=== PATIENT | female | born 1990 ===

== ENCOUNTER 2016-08-21 18:37 | Emergency (ER) | payer SELFPAY ==
[2016-08-21 18:50] VITALS: TEMP 98.9; O2SAT 100
--- NOTE | 2016-08-21 19:10 | ED PDOC ---
HPI: General Adult Time Seen by Provider: 08/21/16 18:41 Chief Complaint (Nursing): Lower Extremity Problem/Injury History Per: Patient Additional Complaint(s): Pt. states she was on a swing earlier today when her R leg became caught on the ground causing her to injure her R ankle and foot. Denies numbness, tingling, other injury, knee pain, leg pain. Past Medical History Reviewed: Historical Data, Nursing Documentation, Vital Signs Vital Signs: Last Vital Signs Temp 98.9 F 08/21/16 18:48 Pulse 100 H 08/21/16 19:04 Resp 20 08/21/16 18:48 BP 111/70 08/21/16 19:04 Pulse Ox 100 08/21/16 19:12 - Family History Family History: States: No Known Family Hx - Allergies Allergies/Adverse Reactions: Allergies Allergy/AdvReac Type Severity Reaction Status Date / Time No Known Allergies Allergy Verified 08/21/16 18:48 Review of Systems ROS Statement: Except As Marked, All Systems Reviewed And Found Negative Musculoskeletal: Positive for: Leg Pain, Foot Pain Physical Exam - Physical Exam Appears: Positive for: Well, Non-toxic, In Acute Distress (moderate painful distress) Skin: Positive for: Normal Color, Warm. Negative for: Rash Extremity: Positive for: Capillary Refill (< 2 seconds of RLE), Other (moderate tenderness to R ankle on both malleoli and on dorsum of foot without deformity; no hip, leg, or knee tenderness). Negative for: Pedal Edema, Calf Tenderness Neurologic/Psych: Positive for: Alert, Oriented - ECG O2 Sat by Pulse Oximetry: 100 - Progress ED Course And Treament: Morphine 4mg IV, zofran 4mg IV ordered. Leg, ankle, foot x-ray ordered. Disposition - Clinical Impression Clinical Impression: Ankle injury - Patient ED Disposition Is Patient to be Admitted: Transfer of Care (Signed out to Carlyn [place] pending xray results.) - Disposition Disposition Time: 20:00 Condition: STABLE
--- NOTE | 2016-08-21 20:59 | CP.PCM.CON ---
History of Present Illness - History of Present Illness History of Present Illness: PODIATRY CONSULT NOTE 25 year old obese female presents for pain, swelling, and mal-alaignment of right ankle. Pt states that at 6 pm [place], she "broke" her ankle while trying to brake on the swing set. Immediately could not bear weight and was brought to [facility] ER via EMS. Pt describes pain as a sharp throbbing localized to her right ankle graded "8/10". Pt reports that her pain is moderately controlled with the administers pain medications. Pt reports she has been NPO since 3pm. Pt denies recent f/c/cp/sob/n/v. PMD: None PMH: Denies. PSH: None All: NKDA Meds: Control Social Hx: Homed, newly employed. Mother to 1 . Denies alcohol consumption. Recent tobacco use histroy- Cigarette use 1/10th a pack a day for 3 weeks, quit [address] drug use. ROS: Negative outside of HPI. Past Patient History - Past Social History Smoking Status: Never Smoked - PSYCHIATRIC Hx Substance Use: No - SURGICAL HISTORY Hx Surgeries: Yes Meds Allergies/Adverse Reactions: Allergies Allergy/AdvReac Type Severity Reaction Status Date / Time No Known Allergies Allergy Verified 08/21/16 18:48 Physical Exam - Constitutional Appears: Well, Non-toxic, No Acute Distress - Extremities Exam Additional comments: Right leg focused. VASC: DP and PT pulses non palpable, auscultated via doppler strongly biphasic flow to both. Negative calf tenderness on compression. Moderate non-pitting edema noted at level of ankle joint. Temperature runs warm to cool proximal to distal. DERM: No noted ecchymosis at this time. No vesicles at this time. No open wounds , lesion, or macerations noted. No hyper-keratotic lesion. NEURO: Protective sensation and epicritic sensation grossly intact. Absent paresthesia or Tinel's signs along pedal dermatomes. MUSK: Gross posterior displacement and angulation of ankle joint. Absent ankle ROM of ankle joint in saggital plane, limitation severe secondary to guarding, swelling, and gross mal-alignment. Tenderness on palpation along medial malleoli , lateral malleoli, and anterior ankle joint. Negative tenderness along proximal fibula. Pain on proximal midcalf induced ankle joint diastasis attempts. ROM present at level of digits. - Neurological Exam Neurological exam: Alert, Oriented x3 - Psychiatric Exam Psychiatric exam: Normal Affect, Normal Mood Results - Vital Signs Recent Vital Signs: Last Vital Signs Temp 98.9 F 08/21/16 18:48 Pulse 100 H 08/21/16 19:04 Resp 20 08/21/16 18:48 BP 111/70 08/21/16 19:04 Pulse Ox 100 08/21/16 20:08 - Labs Labs: Laboratory Results - last 24 hr 08/21/16 18:58 Serum HCG, Qual Negative Assessment & Plan - Assessment and Plan (Free Text) Assessment: 25 year old w/ closed, dislocated right ankle tri-malleolar fracture with syndesmotic rupture, secondary to acute trauma. Plan: Pt seen and evaluated. Chart, labs, and vitals reviewed. Discussed in detail with attending, Dr. Garcia, who endorsed the following plan. Radiographs reviewed. Shows Posteriorly dislocated tri-malleolar right ankle fracture with syndesmotic rupture. Discussed diagnosis and plan with patient. Pt aware and understands that surgical intervention will be needed in the near future. Alternatives, risks, and benefits of other management option, discussed. Pt consented to closed reduction of right ankle under conscious sedation. Sedation administered by Dr. Lynn. Pt tolerated procedure well. Gross alignment and length restored. Correction maintained with bi-valved fiberglass cast. Pt to follow-up in [facility] podiatry clinic within 1 week for surgical scheduling. - Date & Time Date: 08/21/16 Time: 22:26
[2016-08-21] MEDS ORDERED: Propofol 10 mg/ml Inj (20 ML) IV ONE (22:03)
[2016-08-21] MEDS ORDERED: Sodium Chloride 0.9% 1,000 ML IV STA (22:25)
[2016-08-21 22:51] VITALS: BP 120/69
[2016-08-21 22:53] VITALS: PULSE 74; RESP 18
--- NOTE | 2016-08-21 23:58 | ED PDOC ---
- ECG O2 Sat by Pulse Oximetry: 100 <Rai Alcocer - Last Filed: 08/21/16 23:56> - ECG O2 Sat by Pulse Oximetry: 100 (RA) Pulse Ox Interpretation: Normal <Iron Lynn - Last Filed: 08/22/16 00:50> Disposition - POA Present On Arrival: None - Disposition Disposition: Routine/Home Disposition Time: 23:58 <AlcocerRai Dilshad - Last Filed: 08/21/16 23:56> <Iron Lynn - Last Filed: 08/22/16 00:50> - Clinical Impression Clinical Impression: Fracture of tibia and fibula - Disposition Referrals: Podiatry Clinic [Outside] Condition: GOOD Prescriptions: Naproxen 500 mg PO BID #20 tab Instructions: Ankle Fracture (ED) Forms: [facility] ED School/Work Excuse Critical Care Time <Rai Alcocer - Last Filed: 08/21/16 23:56> - Critical Care Note Total Time (in mins): 30 Documented critical care: time excludes all time spent performing seperately billable procedures. <Iron Lynn - Last Filed: 08/22/16 00:50> - Critical Care Note Comments: --Patient was in 30 minutes of critical care time during sedation procedure. ( Iron Lynn) ED Procedural Sedation <Rai Alcocer Dilshad - Last Filed: 08/21/16 23:56> - Pre Anesthesia Assessment Past Medical History: Medications Reviewed, Allergies Reviewed, Record Review Previous Surgies: Reviewed Family History/Social History: Reviewed - Physical Exam/Review of Systems Vital Signs Reviewed: Yes Cardiovascular: Regular Rate and Rhythm, Normal S1, S2. denies: Murmurs Respiratory/Chest: Clear to Auscultation, Good Air Exchange. denies: Respiratory Distress Neurological: GCS=15, CN II-XII Intact, Speech Normal Abdomen: Normal Bowel Sounds. denies: Tenderness, Distention, Peritoneal Signs Mental Status: Alert and Oriented X 3 - Pre-Procedure Airway Assessment History of difficult intubation or surgical airway(i.e trach: No Inability to extend neck:: No Mouth opening less than two finger breadth:: No Diagnosis of sleep apnea:: No Less than three finger breadth to hyoid bone:: No ASA Criteria: 1 - Healthy, normal. 2 - Mild systemic disease (No functional limitations, mildline obesity, DM withot complications, Hypertention). 3 - Severe systemic disease (Some functional limitation, stable angina, morbid obesity, controlled COPD/Asthma/CHF). 4 - Sever systemic disease constant threat to life (Unstable angina, active symptoms of COPD/Asthma, CHF/ Hypertension. 5 - Moribund ASA Clarification: ASA I Mallampati (airway): Class I <Iron Lynn - Last Filed: 08/22/16 00:50> - Pre Anesthesia Assessment Chief Complaint: Lower Extremity Problem/Injury - Intra-Procedure (Medications) Medications Given: Discontinued Medications Acetaminophen (Tylenol 325mg Tab) Confirm Administered Dose 975 mg .ROUTE .STK- MED ONE Stop: 08/21/16 18:46 Acetaminophen (Tylenol 325mg Tab) 975 mg PO STAT STA Stop: 08/21/16 18:52 Last Admin: 08/21/16 18:59 Dose: 975 mg Re-Assess: [facility] Pain/Vitals Document 08/21/16 19:59 NM (Rec: 08/21/16 22:02 NM [email or web address]) Pain Reassessment Is This A Pain ReAssessment? Yes Sleep Is patient sleeping during reassessment? No Presence of Pain Presence of Pain Yes Pain Scale Used Pain Scale Used Numeric Location Left, Right or Bilateral Right Pain Location Body Site Ankle Description Constant Intensity 7 Scale Used Numeric Pain Behavior Irritability Aggravating Factors Changing Position Aggravating Factors Changing Position Hydromorphone HCl (Dilaudid) 1 mg IVP STAT STA Stop: 08/21/16 22:05 Last Admin: 08/21/16 22:13 Dose: 1 mg Re-Assess: [facility] Pain Assessment Document 08/21/16 23:13 NM (Rec: 08/22/16 00:09 NM [email or web address]) Pain Reassessment Is this a pain reassessment? Yes Sleep Is patient sleeping during reassessment? No Presence of Pain Presence of Pain Yes Pain Scale Used Pain Scale Used Numeric Location Left, Right or Bilateral Right Pain Location Body Site Ankle Description Description Constant Intensity of Pain at present 4 Pain Behavior Irritability Aggravating Factors Changing Position Alleviating Factors/Management Medication Techniques Alleviating Factors Medication Sodium Chloride (Sodium Chloride 0.9%) 1,000 mls @ 1,000 mls/hr IV .Q1H STA Stop: 08/21/16 23:24 Last Admin: 08/21/16 22:41 Dose: 1,000 mls/hr Morphine Sulfate (Morphine) 4 mg IVP STAT STA Stop: 08/21/16 18:51 Last Admin: 08/21/16 19:35 Dose: 4 mg Re-Assess: [facility] Pain Assessment Document 08/21/16 20:35 NM (Rec: 08/21/16 22:01 NM [email or web address]) Pain Reassessment Is this a pain reassessment? Yes Sleep Is patient sleeping during reassessment? No Presence of Pain Presence of Pain Yes Pain Scale Used Pain Scale Used Numeric Location Left, Right or Bilateral Right Pain Location Body Site Ankle Description Description Constant Intensity of Pain at present 8 Pain Behavior Irritability Aggravating Factors Changing Position Alleviating Factors/Management Medication Techniques Alleviating Factors Medication Morphine Sulfate (Morphine) Confirm Administered Dose 4 mg .ROUTE .STK-MED ONE Stop: 08/21/16 19:23 Ondansetron HCl (Zofran Inj) 4 mg IVP STAT STA Stop: 08/21/16 18:51 Last Admin: 08/21/16 19:35 Dose: 4 mg Ondansetron HCl (Zofran Inj) Confirm Administered Dose 4 mg .ROUTE .STK-MED ONE Stop: 08/21/16 19:23 Oxycodone/Acetaminophen (Percocet 5/325 Mg Tab) 1 tab PO STAT STA Stop: 08/22/16 00:29 Last Admin: 08/22/16 00:42 Dose: 1 tab Oxycodone/Acetaminophen (Percocet 5/325 Mg Tab) Confirm Administered Dose 1 tab .ROUTE .STK-MED ONE Stop: 08/22/16 00:30 Propofol (Diprivan) 100 mg IV ONCE ONE Stop: 08/21/16 22:04 Last Admin: 08/21/16 22:41 Dose: 100 mg Propofol (Diprivan) 50 mg IV ONCE ONE Stop: 08/22/16 00:25 Last Admin: 08/21/16 22:03 Dose: 50 mg Propofol (Diprivan) Confirm Administered Dose 200 mg .ROUTE .STK-MED ONE Stop: 08/22/16 00:30 - Post-Procedure Post Procedure Note: Time: 00:25 --Conscious sedation procedure of a closed fracture reduction of the right ankle. --Reduction was preformed by podiatry on bedside. --Informed consent obtained from patient. --Administered Dilaudid 1mg IVP and 150 mg of Propofol IV. --Patient tolerated procedure well. --30 minutes critical care. Scribe Attestation: Documented by Jenna Sierra, acting as a scribe for Iron Lynn MD. Provider Scribe Attestation: All medical record entries made by the Scribe were at my direction and personally dictated by me. I have reviewed the chart and agree that the record accurately reflects my personal performance of the history, physical exam, medical decision making, and the department course for this patient. I have also personally directed, reviewed, and agree with the discharge instructions and disposition. (Shane,Iron Padron)
[2016-08-22] MEDS ORDERED: Propofol 10 mg/ml Inj (20 ML) IV ONE (00:24)
[2016-08-22] MEDS ORDERED: Oxycodone/Acetaminophen 5/325 mg Tab PO STA (00:28)
[2016-08-22] MEDS ORDERED: Oxycodone/Acetaminophen 5/325 mg Tab ONE (00:29)
[2016-08-22] MEDS ORDERED: Propofol 10 mg/ml Inj (20 ML) ONE (00:29)
--- NOTE | 2016-08-22 00:36 | ED PDOC ---
- ECG O2 Sat by Pulse Oximetry: 100 (RA) Pulse Ox Interpretation: Normal Medical Decision Making Medical Decision Making: Time: 00:25 Conscious Sedation Procedure --Consent obtained from patient. --Administered Scribe Attestation: Documented by Jenna Sierra, acting as a scribe for Iorn Lynn MD. Provider Scribe Attestation: All medical record entries made by the Scribe were at my direction and personally dictated by me. I have reviewed the chart and agree that the record accurately reflects my personal performance of the history, physical exam, medical decision making, and the department course for this patient. I have also personally directed, reviewed, and agree with the discharge instructions and disposition. Disposition Counseled Patient/Family Regarding: Studies Performed, Diagnosis, Need For Followup - Clinical Impression Clinical Impression: Fracture of tibia and fibula - POA Present On Arrival: None - Disposition Referrals: Podiatry Clinic [Outside] Disposition: Routine/Home Disposition Time: 00:00 Condition: IMPROVED Prescriptions: Naproxen 500 mg PO BID #20 tab Instructions: Ankle Fracture (ED) Forms: [facility] ED School/Work Excuse
--- NOTE | 2016-08-22 12:17 | RAD ---
PROCEDURE: Radiographs of the right tibia and fibula. HISTORY: trauma COMPARISON: Comparison made with concurrent radiographs of the right ankle TECHNIQUE: Frontal and lateral views obtained. FINDINGS: BONES: The previously noted comminuted intra-articular displaced fracture dislocation of the left tibia and fibula less well seen on this study due to on single AP patient positioning. Diffuse bilateral soft tissue swelling medial greater than lateral. JOINT SPACES: Unremarkable. OTHER FINDINGS: None. IMPRESSION: Comminutedintra-articular displaced fracture dislocation of the left tibia and fibula less well seen on this study due to on single AP patient positioning as compared to multiple on concurrent ankle radiographs. . Diffuse bilateral soft tissue swelling medial greater than lateral.
--- NOTE | 2016-08-22 16:59 | RAD ---
Right ankle dated 08/21/2016. History: Status post reduction. Three views of the right ankle performed (1st two radiographs without fiberglass cast and the 3rd obtained with overlying fiberglass cast). . Comparison made with earlier film same day. Previously noted comminuted intraarticular displaced fractures of the distal tibia and fibula again noted with better approximation of the fracture fragments and ankle mortise. Moderate surrounding diffuse bilateral soft tissue swelling. Impression: Status post closed reduction previously noted comminuted intra-articular displaced fractures of the distal tibia and fibula. There is better approximation of the fracture fragments and ankle mortise
--- NOTE | 2016-08-22 17:01 | RAD ---
PROCEDURE: Right ankle radiographs 08/21/2016 Three standard views of the right ankle performed HISTORY: trauma COMPARISON: None FINDINGS: BONES: Current study reveals displaced comminuted intra-articular fractures of the distal tibia and fibula. There is disruption of the ankle mortise and anterior dislocation of the tibia with respect to the talus. Surrounding soft tissue swelling. JOINTS: Normal. No osteoarthritis. Ankle mortise maintained. Talar dome intact SOFT TISSUES: Normal. OTHER FINDINGS: None. IMPRESSION: Comminuted displaced intra-articular fractures of the distal tibia and fibula. There is disruption of the ankle mortise and anterior dislocation of the tibia with respect to the talus. Surrounding soft tissue swelling.
== END 2016-08-22 00:52 | disposition home or self-care (01) ==
LOC: H.ER 18:37
DX: S99.911A Unspecified injury of right ankle, initial encounter (principal); I10 Essential (primary) hypertension; E66.9 Obesity, unspecified; Z72.0 Tobacco use; S82.201A Unspecified fracture of shaft of right tibia, initial encounter for closed fracture; W09.1XXA Fall from playground swing, initial encounter; Y93.9 Activity, unspecified
CPT/HCPCS: 27840; 73590; 73600; 73610; 84703; 96361; 96374; 96375; 96376; 99285; J1170; J2270; J2405; J2704; J7040

== ENCOUNTER 2017-08-18 12:07 | Emergency (ER) | payer MEDICAID ==
[2017-08-18 12:11] VITALS: BMI 42.0
--- NOTE | 2017-08-18 12:57 | ED PDOC ---
HPI: General Adult Time Seen by Provider: 08/18/17 12:31 Chief Complaint (Nursing): GI Problem History Per: Patient Additional Complaint(s): Pt. requesting test as she's had nausea (spitting up but no vomiting) and states she feels that her breasts feel engorged. Pt. is concerned about being . Denies pelvic pain, vaginal bleeding, dysuria, hematuria, abdominal pain, constipation. LMP: "end of last month" Past Medical History Reviewed: Historical Data, Nursing Documentation, Vital Signs Vital Signs: Last Vital Signs Temp 98 F 08/18/17 12:11 Pulse 84 08/18/17 12:11 Resp 16 08/18/17 12:11 BP 113/77 08/18/17 12:11 Pulse Ox 97 08/18/17 12:58 - Medical History PMH: Fractures (present) Denies: HIV, Chronic Kidney Disease - Family History Family History: States: Unknown Family Hx - Immunization History Hx Tetanus Toxoid Vaccination: Yes - Home Medications Home Medications: Ambulatory Orders Medication Instructions Recorded Naproxen 500 mg PO BID #20 tab 08/21/16 Naproxen [Naprosyn] 500 mg PO BID PRN 08/27/16 - Allergies Allergies/Adverse Reactions: Allergies Allergy/AdvReac Type Severity Reaction Status Date / Time No Known Allergies Allergy Verified 08/21/16 18:48 Review of Systems ROS Statement: Except As Marked, All Systems Reviewed And Found Negative Gastrointestinal: Positive for: Nausea Physical Exam - Physical Exam Appears: Positive for: Well, Non-toxic, No Acute Distress Skin: Positive for: Normal Color, Warm. Negative for: Rash Cardiovascular/Chest: Positive for: Regular Rate, Rhythm Respiratory: Positive for: Normal Breath Sounds - Laboratory Results Urine POC: Negative - ECG O2 Sat by Pulse Oximetry: 97 Disposition - Clinical Impression Clinical Impression: test negative - Patient ED Disposition Is Patient to be Admitted: No - Disposition Referrals: [email or web address] [Outside] [facility] [Outside] Disposition: Routine/Home Disposition Time: 13:05 Condition: STABLE Additional Instructions: Follow up with [facility] for further evaluation Return to ED immediately if symptoms worsen Instructions: Tests, Symptoms Forms: [employer] (Kyrgyz) Print Language: POLISH
[2017-08-18 13:29] VITALS: BP 124/70; PULSE 76; RESP 17; TEMP 97.8; O2SAT 100
== END 2017-08-18 13:28 | disposition home or self-care (01) ==
LOC: H.ER 12:07
DX: Z32.02 Encounter for pregnancy test, result negative (principal)

== ENCOUNTER 2017-11-05 12:56 | Emergency (ER) | payer MEDICAID ==
[2017-11-05 13:25] VITALS: O2SAT 100
[2017-11-05 13:26] VITALS: BMI 40.8
[2017-11-05 13:30] VITALS: RESP 18
[2017-11-05 14:04] LABS: SQUAMOUS EPITHIAL 2 /hpf (0-5); URINE BILIRUBIN NEGATIVE (NEGATIVE); URINE BLOOD NEGATIVE (NEGATIVE); URINE CLARITY CLEAR (Clear); URINE COLOR YELLOW (YELLOW); URINE GLUCOSE (UA) NEG (Normal); URINE LEUKOCYTE ESTERASE NEG Leu/uL (Negative); URINE PROTEIN NEGATIVE (NEGATIVE); URINE UROBILINOGEN 0.2-1.0 mg/dL (0.2-1.0)
[2017-11-05 14:16] LABS: BASO % 0.6 % (0.0-2.0); EOS # 0.1 K/uL (0.0-0.7); EOS % 1.4 % (0.0-4.0); HEMOGLOBIN 12.4 g/dL (12.0-16.0); LYMPH # 2.5 K/uL (1.0-4.3); LYMPH % 40.6 % (20.0-40.0); MEAN CELL VOLUME 84.5 fl (81.0-99.0); MEAN CORPUSCULAR HEMOGLOBIN 27.9 pg (27.0-31.0); MEAN CORPUSCULAR HGB CONC 33.1 g/dL (33.0-37.0); MEAN PLATELET VOLUME 8.1 fl (7.2-11.7); MONO # 0.4 K/uL (0.0-0.8); MONO % 6.9 % (0.0-10.0); NEUT # 3.1 K/uL (1.8-7.0); NEUT % 50.5 % (50.0-75.0); NRBC % 0.2 % (0.0-0.0); RBC 4.45 Mil/uL (3.80-5.20); RED CELL DISTRIBUTION WIDTH 15.4 % (11.5-14.5); WHITE BLOOD COUNT 6.2 K/uL (4.8-10.8)
[2017-11-05 14:30] LABS: ALB/GLOB RATIO 1.2 (1.0-2.1); ALBUMIN 3.9 g/dL (3.5-5.0); ALT/SGPT 26 U/L (9-52); AST/SGOT 23 U/L (14-36); BLOOD UREA NITROGEN 10 mg/dl (7-17); CALCIUM 8.8 mg/dL (8.4-10.2); GFR AFRICAN-AMERICAN > 60; GFR NON-AFRICAN AMERICAN > 60; LIPASE 29 U/L (23-300)
--- NOTE | 2017-11-05 14:34 | ED PDOC ---
HPI: Abdomen Time Seen by Provider: 11/05/17 13:38 Chief Complaint (Nursing): Abdominal Pain Chief Complaint (Provider): abd pain History Per: Patient (23 y/o female here with lower abd crampy pain associated with nausea and 1 episode vomiting. denies any diarrhea/fevers/chills.) Past Medical History Reviewed: Historical Data, Nursing Documentation, Vital Signs Vital Signs: Last Vital Signs Temp 98.2 F 11/05/17 15:16 Pulse 67 11/05/17 15:16 Resp 18 11/05/17 15:16 BP 109/68 11/05/17 15:16 Pulse Ox 100 11/05/17 15:16 - Medical History PMH: Fractures (present) Denies: HIV, Chronic Kidney Disease - Family History Family History: States: Unknown Family Hx - Immunization History Hx Tetanus Toxoid Vaccination: Yes - Home Medications Home Medications: Ambulatory Orders Medication Instructions Recorded Naproxen 500 mg PO BID #20 tab 08/21/16 Naproxen [Naprosyn] 500 mg PO BID PRN 08/27/16 Famotidine [Pepcid] 20 mg PO BID #10 tab 11/05/17 Ondansetron ODT [Zofran ODT] 4 mg PO Q8 PRN #3 odt 11/05/17 - Allergies Allergies/Adverse Reactions: Allergies Allergy/AdvReac Type Severity Reaction Status Date / Time No Known Allergies Allergy Verified 08/21/16 18:48 Review of Systems ROS Statement: Except As Marked, All Systems Reviewed And Found Negative Physical Exam - Reviewed Nursing Documentation Reviewed: Yes Vital Signs Reviewed: Yes - Physical Exam Appears: Positive for: Well, Non-toxic, No Acute Distress Head Exam: Positive for: ATRAUMATIC, NORMAL INSPECTION, NORMOCEPHALIC Skin: Positive for: Normal Color, Warm, DRY Eye Exam: Positive for: EOMI, Normal appearance, PERRL ENT: Positive for: Normal ENT Inspection Neck: Positive for: Normal, Painless ROM Cardiovascular/Chest: Positive for: Regular Rate, Rhythm Respiratory: Positive for: CNT, Normal Breath Sounds Gastrointestinal/Abdominal: Positive for: Normal Exam, Soft Back: Positive for: Normal Inspection Extremity: Positive for: Normal ROM Neurologic/Psych: Positive for: Alert, Oriented - Laboratory Results Result Diagrams: 11/05/17 14:11 11/05/17 14:11 Urine POC: Negative Urine dip results: Negative for: Leukocyte Esterase, Blood, Nitrate, Ketones, Glucose, Bilirubin - ECG O2 Sat by Pulse Oximetry: 100 - Progress ED Course And Treament: pepcid 20 mg iv x 1 dose zofran 4 mg iv x 1 dose with improvement of symptoms Disposition - Clinical Impression Clinical Impression: Abdominal cramps - Patient ED Disposition Is Patient to be Admitted: No - Disposition Disposition: Routine/Home Disposition Time: 15:13 Condition: FAIR Prescriptions: Famotidine [Pepcid] 20 mg PO BID #10 tab Ondansetron ODT [Zofran ODT] 4 mg PO Q8 PRN #3 odt PRN Reason: Nausea/Vomiting Instructions: Nausea and Vomiting, Adult (DC) Forms: [employer] (Kazakh)
[2017-11-05 15:17] VITALS: BP 109/68; PULSE 67; TEMP 98.2
== END 2017-11-05 15:13 | disposition home or self-care (01) ==
LOC: H.ER 12:56
DX: R10.9 Unspecified abdominal pain (principal)
CPT/HCPCS: 80053; 81003; 81025; 83690; 85025; 87086; 87491; 87591; 96374; 96375; 99285; J2405

== ENCOUNTER 2017-11-28 09:26 | Emergency (ER) | payer MEDICAID ==
[2017-11-28 09:27] VITALS: BMI 40.8
--- NOTE | 2017-11-28 10:11 | ED PDOC ---
HPI: Female Pain Time Seen by Provider: 11/28/17 09:54 Chief Complaint (Nursing): Female Genitourinary Chief Complaint (Provider): vaginal dc History Per: Patient History/Exam Limitations: no limitations Onset/Duration Of Symptoms: Days (11/05/17) Additional Complaint(s): Pt. here to get checked if she still has chlamydia. Has no abd pain, weakness, headaches, dizziness, back pain. Has vaginal yellow dc. No nausea, vomit diarrhea. Rx zithromax on 11/10 and pt. states she took it. Has dc from vaginal area with burning mild since then. Past Medical History Reviewed: Nursing Documentation, Vital Signs Vital Signs: Last Vital Signs Temp 98.4 F 11/28/17 09:32 Pulse 84 11/28/17 09:32 Resp 17 11/28/17 09:32 BP 105/68 11/28/17 09:32 Pulse Ox 99 11/28/17 09:32 - Medical History PMH: Fractures (present) Denies: HIV, Chronic Kidney Disease - Family History Family History: States: Unknown Family Hx - Immunization History Hx Tetanus Toxoid Vaccination: Yes - Home Medications Home Medications: Ambulatory Orders Medication Instructions Recorded Naproxen 500 mg PO BID #20 tab 08/21/16 Naproxen [Naprosyn] 500 mg PO BID PRN 08/27/16 Famotidine [Pepcid] 20 mg PO BID #10 tab 11/05/17 Ondansetron ODT [Zofran ODT] 4 mg PO Q8 PRN #3 odt 11/05/17 Azithromycin [Zithromax] 1,000 mg PO ONCE #2 tablet 11/10/17 Doxycycline Hyclate [Doryx] 100 mg PO BID 7 Days cap 11/28/17 - Allergies Allergies/Adverse Reactions: Allergies Allergy/AdvReac Type Severity Reaction Status Date / Time No Known Allergies Allergy Verified 08/21/16 18:48 Review of Systems Constitutional: Negative for: Weakness Cardiovascular: Negative for: Chest Pain Respiratory: Negative for: Shortness of Breath Gastrointestinal: Negative for: Nausea, Vomiting, Abdominal Pain Genitourinary Female: Positive for: Vaginal Discharge. Negative for: Dysuria, Frequency, Hematuria, Pelvic Pain Musculoskeletal: Negative for: Neck Pain Neurological: Negative for: Weakness Physical Exam - Reviewed Nursing Documentation Reviewed: Yes Vital Signs Reviewed: Yes - Physical Exam Neck: Positive for: Normal, Painless ROM Cardiovascular/Chest: Positive for: Regular Rate, Rhythm Respiratory: Positive for: CNT, Normal Breath Sounds Gastrointestinal/Abdominal: Positive for: Normal Exam, Soft. Negative for: Tenderness Pelvic Exam: Positive for: External Exam Normal, No Cerv. Motion Tender, Other ( trace discoloration of cervix; no dc). Negative for: Lesions Back: Positive for: Normal Inspection. Negative for: L CVA Tenderness, R CVA Tenderness Extremity: Positive for: Normal ROM. Negative for: Tenderness, Pedal Edema - ECG O2 Sat by Pulse Oximetry: 99 Pulse Ox Interpretation: Normal - Progress ED Course And Treament: 1026: Pt. took azithromycin and still has dc. Will rx with doxy. Stable. AAOx3. Disposition - Clinical Impression Clinical Impression: Chlamydia - Patient ED Disposition Is Patient to be Admitted: No - Disposition [facility] - 11/30/17 Disposition: Routine/Home Disposition Time: 10:28 Condition: FAIR Additional Instructions: Return if not better after antibiotics finished. Prescriptions: Doxycycline Hyclate [Doryx] 100 mg PO BID 7 Days cap Instructions: Chlamydia (DC)
[2017-11-28 11:05] VITALS: BP 126/76; PULSE 78; RESP 19; TEMP 97.4; O2SAT 98
== END 2017-11-28 11:06 | disposition home or self-care (01) ==
LOC: H.ER 09:26
DX: A74.9 Chlamydial infection, unspecified (principal)

== ENCOUNTER 2017-12-31 12:25 | Emergency (ER) | payer MEDICAID ==
[2017-12-31 12:26] VITALS: BMI 40.8
[2017-12-31 12:37] VITALS: BP 127/75; PULSE 78; RESP 16; TEMP 97
[2017-12-31 13:45] VITALS: O2SAT 98
--- NOTE | 2017-12-31 13:45 | ED PDOC ---
HPI: Abdomen Additional Complaint(s): 23 y/o F presents c/o of bilateral breast tenderness, mild pelvic pain and mild SOB since a few days ago. Pt suspecting being , is sexually active with NO use of contraception. LMP 12/02/17. Menses are regular with normal bleeding. Pt had Chlamydia 3 months ago, partner and herself were treated with PO antibiotics. Pt denies fever, chills, galactorrhea, chest pain, wheezing, nausea, vomiting, abdominal pain, urinary problems or vaginal discharge. PMD: None NKA Meds: None PMHx: denied PSHx: R ankle surgery for fracture repair. FHx: NC SHx: denies alcohol, tobacco or rec drugs. <Aureloi Monson - Last Filed: 12/31/17 13:36> <Kusum Payne - Last Filed: 12/31/17 15:51> Time Seen by Provider: 12/31/17 12:57 Chief Complaint (Nursing): Shortness Of Breath Supervising Attending Note - Supervising Attending Note The Documented history was done by the: Physician Battery Hand The documented physical exam was done by the: Physician Battery Hand The documented procedures were done by the: Physician Battery Hand - Attestation: I have personally seen and examined this patient.: Yes I have fully participated in the care of the patient.: Yes - Notes: Notes:: Pt presented with breast tenderness and missed period. UA shows no signs of infection and patient with positive preg. Discussed early with patient including no alcohol, tobacco, or drugs. Pt given rx for vitamins and [facility]. <Kusum Payne - Last Filed: 12/31/17 15:51> Past Medical History Vital Signs: Last Vital Signs Temp 97.0 F L 12/31/17 12:34 Pulse 78 12/31/17 12:34 Resp 16 12/31/17 12:34 BP 127/75 12/31/17 12:34 Pulse Ox 98 12/31/17 12:34 - Medical History PMH: Fractures (present) Denies: HIV, Chronic Kidney Disease - Family History Family History: States: Unknown Family Hx - Living Arrangements Living Arrangements: With Family - Social History Current smoker - smoking cessation education provided: No Ex-Smoker (has not smoked in the last 12 months): No Drugs: Denies - Immunization History Hx Tetanus Toxoid Vaccination: Yes <Aurelio Monson - Last Filed: 12/31/17 13:36> Vital Signs: Last Vital Signs Temp 97.0 F L 12/31/17 12:34 Pulse 78 12/31/17 12:34 Resp 16 12/31/17 12:34 BP 127/75 12/31/17 12:34 Pulse Ox 98 12/31/17 13:52 <Kusum Pyane - Last Filed: 12/31/17 15:51> - Home Medications Home Medications: Ambulatory Orders Medication Instructions Recorded RX: Naproxen 500 mg PO BID #20 tab 08/21/16 RX: Naproxen [Naprosyn] 500 mg PO BID PRN 08/27/16 Famotidine [Pepcid] 20 mg PO BID #10 tab 11/05/17 Ondansetron ODT [Zofran ODT] 4 mg PO Q8 PRN #3 odt 11/05/17 RX: Azithromycin [Zithromax] 1,000 mg PO ONCE #2 tablet 11/10/17 RX: Doxycycline Hyclate [Doryx] 100 mg PO BID 7 Days cap 11/28/17 - Allergies Allergies/Adverse Reactions: Allergies Allergy/AdvReac Type Severity Reaction Status Date / Time No Known Allergies Allergy Verified 12/31/17 12:34 Review of Systems Constitutional: Negative for: Fever, Chills, Sweats Eyes: Negative for: Pain ENT: Negative for: Ear Pain, Throat Pain Cardiovascular: Negative for: Chest Pain, Palpitations Respiratory: Negative for: Cough, Shortness of Breath Gastrointestinal: Negative for: Nausea, Vomiting, Abdominal Pain Genitourinary Female: Negative for: Dysuria, Frequency, Hematuria, Vaginal Discharge, Vaginal Bleeding, Pelvic Pain Musculoskeletal: Negative for: Neck Pain, Shoulder Pain Skin: Negative for: Rash Neurological: Negative for: Weakness, Numbness Psych: Negative for: Anxiety, Depression <Aurelio Monson - Last Filed: 12/31/17 13:36> Physical Exam - Physical Exam Appears: Positive for: Well, No Acute Distress Head Exam: Positive for: ATRAUMATIC, NORMAL INSPECTION Skin: Positive for: Normal Color, Diaphoresis Eye Exam: Positive for: Normal appearance, EOMI ENT: Positive for: Normal ENT Inspection Neck: Positive for: Normal, Painless ROM, Supple Cardiovascular/Chest: Positive for: Regular Rate, Rhythm Respiratory: Positive for: Normal Breath Sounds Gastrointestinal/Abdominal: Positive for: Normal Exam, Bowel Sounds, Soft. Negative for: Tenderness, Mass, Distended, Guarding Neurologic/Psych: Positive for: Alert, Oriented <Aurelio Monson - Last Filed: 12/31/17 13:36> - ECG O2 Sat by Pulse Oximetry: 98 <Aurelio Monson - Last Filed: 12/31/17 13:36> Medical Decision Making Medical Decision Making: At 13:15, Urine test was positive, pt was given the news of being . --Pt counseled on the importance of initiating pre- vitamins today. All question were answered and pt was explained that it is too early to have a sonogram and to precisely measure age of . --Spontaneous precautions given and instructed to return to ED if any vaginal bleeding, severe pelvic pain, etc. --Referral for [facility] [place] was provided to patient. <Aurelio Monson - Last Filed: 12/31/17 13:36> Disposition - Patient ED Disposition Is Patient to be Admitted: No Counseled Patient/Family Regarding: Diagnosis - Disposition Disposition: Routine/Home Disposition Time: 13:45 <Aurelio Monson - Last Filed: 12/31/17 13:36> <Kusum Payne - Last Filed: 12/31/17 15:51> - Clinical Impression Clinical Impression: - Disposition [facility]] Mirna Otero MD [Staff Provider] - Condition: STABLE Additional Instructions: Pt has tested positive on Urinary qualitative test at this ED visit. Pt needs to start Pre-bladimir vitamins. Forms: [employer] ([place]raltarian)
== END 2017-12-31 13:54 | disposition home or self-care (01) ==
LOC: H.ER 12:25
DX: Z33.1 Pregnant state, incidental (principal)

== ENCOUNTER 2018-03-05 21:58 | Emergency (ER) | payer MEDICAID ==
[2018-03-05 21:59] VITALS: BMI 40.8
[2018-03-05 22:49] VITALS: BP 141/77; PULSE 91; RESP 18; TEMP 98.5; O2SAT 99
--- NOTE | 2018-03-06 00:10 | ED PDOC ---
HPI: General Adult Time Seen by Provider: 03/05/18 22:53 Chief Complaint (Nursing): Flu-like Symptoms Chief Complaint (Provider): Sore throat, body pain, headache x 4 days Additional Complaint(s): Sore throat, headache and body pain x 4 days. No fever. Pt states she did not take anything at home. Pt reports mild cough. Pt reports taking . Pt reports several people in her home smoking cigarettes. Pt without abdominal pain, nausea, vomiting or vaginal bleeding Past Medical History Reviewed: Historical Data, Nursing Documentation, Vital Signs Vital Signs: Last Vital Signs Temp 98.5 F 03/05/18 22:46 Pulse 91 H 03/05/18 22:46 Resp 18 03/05/18 22:46 BP 141/77 03/05/18 22:46 Pulse Ox 99 03/05/18 22:46 - Medical History PMH: Fractures (present) Denies: HIV, Chronic Kidney Disease - Family History Family History: States: Unknown Family Hx - Immunization History Hx Tetanus Toxoid Vaccination: Yes - Home Medications Home Medications: Ambulatory Orders Medication Instructions Recorded Naproxen 500 mg PO BID #20 tab 08/21/16 Naproxen [Naprosyn] 500 mg PO BID PRN 08/27/16 Famotidine [Pepcid] 20 mg PO BID #10 tab 11/05/17 Ondansetron ODT [Zofran ODT] 4 mg PO Q8 PRN #3 odt 11/05/17 Azithromycin [Zithromax] 1,000 mg PO ONCE #2 tablet 11/10/17 Doxycycline Hyclate [Doryx] 100 mg PO BID 7 Days cap 11/28/17 - Allergies Allergies/Adverse Reactions: Allergies Allergy/AdvReac Type Severity Reaction Status Date / Time No Known Allergies Allergy Verified 12/31/17 12:34 Review of Systems ROS Statement: Except As Marked, All Systems Reviewed And Found Negative Constitutional: Negative for: Fever, Chills Gastrointestinal: Negative for: Nausea, Vomiting Genitourinary Female: Negative for: Dysuria, Frequency Musculoskeletal: Negative for: Neck Pain Skin: Negative for: Rash, Lesions - ECG O2 Sat by Pulse Oximetry: 99 Medical Decision Making Medical Decision Making: Rapid strep and influenza (-) Pt reports feeling better after tylenol. Disposition - Clinical Impression Clinical Impression: Viral syndrome - Patient ED Disposition Is Patient to be Admitted: No Counseled Patient/Family Regarding: Diagnosis, Need For Followup - Disposition Disposition: Routine/Home Disposition Time: 00:11 Condition: GOOD Additional Instructions: Lots of water, rest. Tylenol may be taken for symptoms. Instructions: Viral Syndrome (DC) Forms: [email or web address] ([place]ijani), [facility] ED School/Work Excuse
== END 2018-03-06 00:14 | disposition home or self-care (01) ==
LOC: H.ER 21:58
DX: B34.9 Viral infection, unspecified (principal)